=== PATIENT | male | born 1995 | race Caucasian/White ===

== ENCOUNTER 2016-11-09 21:39 | Emergency (ER) | payer OTHER ==
[~2016-11-09] VITALS: Ht 175.3 cm; Wt 82.3 kg
[2016-11-09 21:47] VITALS: BP 102/65
--- NOTE | 2016-11-09 22:08 | NUR ---
PT TAKEN TO XRAY FROM THE LOBBY
--- NOTE | 2016-11-09 23:23 | NUR ---
PT TAKEN TO BED 5
--- NOTE | 2016-11-09 23:27 | NUR ---
21Y M BIB FAMILY C/O SOB AND CHEST PAIN X 1 WEEK, WAS SEEN BY HIS PCP THIS MORNING AND WAS GIVEN ALBUTEROL INHALER, BUT GOT NO RELIEF SO CAME HERE TO [place]. PT DENIES ANY N/V/D AT THE MOMENT. PT STATES PAIN AT CHEST IS NON RADIATING SUBSTERNAL, ACHING. PT SHOWS NO SIGNS OF DISTRESS AT THE MOMENT. BREATHING IS UNLABORED AND CLEAR BILAT. PT [id number].
--- NOTE | 2016-11-09 23:42 | NUR ---
Dr. Richardson evaluating patient at bedside.
[2016-11-09] MEDS ORDERED: ALBUTEROL 0.083% 2.5 MG/3 ML NEBU INH ONE (23:50)
[2016-11-09] MEDS ORDERED: predniSONE 20 MG TAB PO ONE (23:50)
[2016-11-09] MEDS ORDERED: ALBUTEROL SULFATE/IPRATROPIU 3 ML SOL IH ONE (23:50)
--- NOTE | 2016-11-09 23:56 | NUR ---
Respiratory Therapist at bedside for respiratory intervention.
[2016-11-10 00:45] VITALS: BP 12/72
--- NOTE | 2016-11-10 00:45 | NUR ---
Patient discharged with v/s stable. Written and verbal after care instructions given and explained. Patient alert, oriented and verbalized understanding of instructions. Ambulatory with steady gait. All questions addressed prior to discharge. ID band removed. Patient advised to follow up with PMD. Rx of MOTRIN 800MG AND PREDNISONE 20MG given. Patient educated on indication of medication including possible reaction and side effects. Opportunity to ask questions provided and answered.
== END 2016-11-10 00:45 | disposition home or self-care (01) ==
LOC: MED 21:39
DX: R07.9 Chest pain, unspecified (principal); R06.02 Shortness of breath
CPT/HCPCS: 71020; 93005; 94640; 99284; J7512; J7613; J7620